=== PATIENT | male | born 1970 | race Caucasian/White ===

== ENCOUNTER 2021-09-14 11:06 | Emergency (ER) | payer BC ==
[2021-09-14] MEDS ORDERED: BAMLANIVIMAB (EUA) 700 MG, ETESEVIMAB (EUA) 1,400 MG in SODIUM CHLORIDE 0.9% 50 ML IVPB ONE (13:15)
[2021-09-14] MEDS ORDERED: SODIUM CHLORIDE 0.9% 50 ML IVPB ONE (13:45)
[2021-09-14 13:46] VITALS: PULSE 62; RESP 16
--- NOTE | 2021-09-14 14:37 | ED ---
General Adult HPI - General Chief complaint: Fever Stated complaint: Covid+/BAM Time Seen by Provider: 09/14/21 12:12 Source: patient, family, RN notes reviewed Mode of arrival: ambulatory Limitations: no limitations - History of Present Illness Initial comments: 51-year-old male presents to the emergency department requesting monoclonal antibody infusion. Patient states he tested positive for Covid on September 10, with symptom onset September 09. Reports history of mild asthma and diet controlled controlled diabetes. States he has had intermittent fever, fatigue, body aches, and mild nausea. States he has been able to treat his symptoms with OTC medications. Denies any chest pain, difficulty breathing, abdominal pain, vomiting, constipation, diarrhea, dysuria, or hematuria at this time. - Related Data Allergies Allergy/AdvReac Type Severity Reaction Status Date / Time No Known Allergies Allergy Verified 09/14/21 11:38 Review of Systems ROS Statement: Those systems with pertinent positive or pertinent negative responses have been documented in the HPI. ROS Other: All systems not noted in ROS Statement are negative. Past Medical History Past Medical History: No Reported History History of Any Multi-Drug Resistant Organisms: None Reported Additional Past Surgical History / Comment(s): neck fusion Past Psychological History: No Psychological Hx Reported Smoking Status: Never smoker Past Alcohol Use History: Occasional Past Drug Use History: None Reported General Exam Limitations: no limitations (Well-developed, well-nourished male in no acute distress. Initial temperature 98.6, pulse 60, respirations 18, blood pressure 127/76, pulse ox 97% on room air) General appearance: alert, in no apparent distress ENT exam: Present: normal exam, normal oropharynx, mucous membranes moist Respiratory exam: Present: normal lung sounds bilaterally. Absent: respiratory distress, wheezes, rales, rhonchi, stridor Cardiovascular Exam: Present: regular rate, normal rhythm, normal heart sounds. Absent: systolic murmur, diastolic murmur, rubs, gallop, clicks GI/Abdominal exam: Present: soft, normal bowel sounds. Absent: distended, tenderness, guarding, rebound, rigid Neurological exam: Present: alert, oriented X3, CN II-XII intact Psychiatric exam: Present: normal affect, normal mood Skin exam: Present: warm, dry, intact, normal color. Absent: rash Course Vital Signs 09/14/21 09/14/21 09/14/21 11:34 13:45 14:27 Temperature 98.6 F Pulse Rate 68 62 61 Respiratory 18 16 16 Rate Blood Pressure 127/76 117/73 123/78 O2 Sat by Pulse 97 95 98 Oximetry 09/14/21 15:06 Temperature 98.4 F Pulse Rate 62 Respiratory 16 Rate Blood Pressure 132/86 O2 Sat by Pulse 95 Oximetry Medical Decision Making - Medical Decision Making This is a 51-year-old Covid positive male who presents to the emergency department requesting the monoclonal antibody infusion. States he does have a history of mild asthma and diet-controlled diabetes. Upon exam, patient is well-appearing; he is afebrile, not tachypneic, nor tachycardic. SpO2 is 95% or greater. Patient is familiar with monoclonal antibodies and is agreeable to this infusion. Tolerated this treatment without any adverse side effects. Patient will be discharged home to follow up with his primary care provider. Return parameters were discussed in detail. Patient verbalizes understanding and agrees with this plan. This patient's care was discussed with my attending Dr. Gutierrez. Disposition Clinical Impression: COVID-19 Disposition: HOME SELF-CARE Condition: Stable Instructions (If sedation given, give patient instructions): Coronavirus Disease 2019 (COVID-19) Additional Instructions: Alternate Tylenol and Motrin for fever control. Follow-up with primary care provider for recheck as needed. Return to the emergency department with any new, worsening, or concerning symptoms. Is patient prescribed a controlled substance at d/c from ED?: No Referrals: None,Stated [Primary Care Provider] - 1-2 days Time of Disposition: 15:02
[2021-09-14 15:07] VITALS: BP 132/86; TEMP 98.4
== END 2021-09-14 14:59 | disposition home or self-care (01) ==
LOC: EC 11:06
DX: U07.1 COVID-19 (principal)
CPT/HCPCS: 99283; J3490